=== PATIENT | female | born 1935 | race Caucasian/White ===

== ENCOUNTER 2017-01-02 05:39 | Day surgery (SDC) | payer MEDICARE, OTHER ==
[~2017-01-02] VITALS: Ht 167.6 cm; Wt 69.1 kg
[~2017-01-02 05:39] MED LIST: DIGO125T PO; LEVO112T4 PO; LIOT25 PO; LORazepam 2 MG/ML VIAL IVP PRN; METO25 PO; SODIUM CHLORIDE 0.9% 1,000 ML IV ONE; VANCOMYCIN HCL 1 GM/D5% WATER 200 ML IV ONE
[2017-01-02] MEDS ORDERED: EPHEDrine SULFATE 50 MG/ML VIAL IM ONE (05:40)
[2017-01-02] MEDS ORDERED: METOCLOPRAMIDE HCL 5 MG/ML 2 ML VIAL IVP ONE (05:40)
[2017-01-02] MEDS ORDERED: ALBUTEROL SULFATE HFA 90 MCG/PUFF 8 GM INHALER IH ONE (05:40)
[2017-01-02] MEDS ORDERED: PROPOFOL 1% 20 ML VIAL IVP ONE (05:40)
[2017-01-02] MEDS ORDERED: ONDANSETRON HCL 4 MG/2 ML VIAL IVP ONE (05:40)
[2017-01-02] MEDS ORDERED: LIDOCAINE HCL/PF 2% 5 ML VIAL INJ ONE (05:40)
[2017-01-02] MEDS ORDERED: GLYCOPYRROLATE 0.2 MG/ML VIAL IM ONE (05:40)
[2017-01-02] MEDS ORDERED: SUCCINYLCHOLINE CHLORIDE 20 MG/ML 10 ML VIAL IVP ONE (05:40)
[2017-01-02] MEDS ORDERED: SODIUM CHLORIDE 0.9% 1,000 ML IV ONE ×2 (05:54→10:00)
[2017-01-02] MEDS ORDERED: PROPOFOL 1000 MG/ISO-OSM 200 ML IV ONE (06:24)
[2017-01-02 06:33] LABS: BASOPHILS % (AUTO) 0.4 % (0.0-2.0); EOSINOPHILS % (AUTO) 3.3 % (1.0-6.0); HEMATOCRIT 38.6 % (36-46); HEMOGLOBIN 12.9 g/dL (12.0-16.0); LYMPHOCYTES # (AUTO) 1.5 K/uL (1.0-4.8); LYMPHOCYTES % (AUTO) 14.9 % (22.0-44.0); MEAN CORPUSCULAR HEMOGLOBIN 28.3 pg (26.0-34.0); MEAN CORPUSCULAR HGB CONC 33.3 G/dL (31.0-37.0); MEAN CORPUSCULAR VOLUME 85 fL (80-100); MONOCYTES # (AUTO) 0.9 K/uL (0.1-1.0); MONOCYTES % (AUTO) 9.3 % (2.0-9.0); NEUTROPHILS # (AUTO) 7.2 K/uL (1.8-7.7); NEUTROPHILS % (AUTO) 72.1 % (40.0-70.0); PLATELET COUNT (AUTO) 300 K/uL (150-450); RED BLOOD CELL COUNT(AUTO) 4.55 MIL/uL (4.00-5.20); RED CELL DISTRIBUTION WIDTH 15.6 % (11.5-14.5)
[2017-01-02 06:43] LABS: ALANINE AMINOTRANSFERASE 8 U/L (12-78); ALBUMIN 2.8 g/dL (3.4-5.0); ALKALINE PHOSPHATASE 86 U/L (46-116); ANION GAP 7 mmol/L (8-16); ASPARTATE AMINOTRANSFERASE 13 U/L (15-37); BILIRUBIN,TOTAL 0.5 mg/dL (0.1-1.0); CALCIUM, TOTAL 8.7 mg/dL (8.8-10.5); CARBON DIOXIDE 28 mmol/L (22-29); CHLORIDE 101 mmol/L (98-107); CREATININE 0.49 mg/dL (0.60-1.30); GLOMERULAR FILTR. RATE CALC > 60 mL/min (>60); GLUCOSE,RANDOM 101 mg/dL (70-110); POTASSIUM 4.2 mmol/L (3.5-5.1); SODIUM SERUM 136 mmol/L (136-145); TOTAL PROTEIN, SERUM 6.2 g/dL (6.4-8.2); UREA NITROGEN, BLOOD 7 mg/dL (7-18)
[2017-01-02] MEDS ORDERED: IPRATROPIUM BROMIDE 0.5 MG/2.5 ML NEB SOLUTION NEB ONE (06:45)
[2017-01-02] MEDS ORDERED: ALBUTEROL SULFATE 2.5 MG/0.5 ML NEB SOLUTION NEB ONE ×2 (06:45)
[2017-01-02] MEDS ORDERED: 0.9% SODIUM CHLORIDE 5 ML NEB SOLUTION NEB ONE (06:46)
[2017-01-02] MEDS ORDERED: LIDOCAINE HCL/PF 1% 30 ML VIAL ONE (07:32)
[2017-01-02] MEDS ORDERED: GELATIN SPONGE,ABSORBABLE 12-7 MM TP ONE (07:32)
[2017-01-02] MEDS ORDERED: IOVERSOL 350 MG/ML 100 ML VIAL ONE (07:56)
[2017-01-02] MEDS ORDERED: SODIUM CHLORIDE 0.9% 0 ML ONE (07:56)
[2017-01-02 08:01] LABS: INR 1.1 (0.9-1.1)
[2017-01-02] MEDS ORDERED: SODIUM CHLORIDE 0.9% 1,000 ML IV SCH (09:54)
[2017-01-02] MEDS ORDERED: HYDROmorphone HCL 2 MG TABLET PO ONE (10:00)
[2017-01-02] MEDS ORDERED: OxyCODONE HCL/ACETAMINOPHEN 5-325 MG TABLET PO PRN ×2 (10:00)
[2017-01-02] MEDS ORDERED: HYDROmorphone 2 MG/ML SYRINGE IVP PRN ×2 (10:00→10:30)
[2017-01-02] MEDS ORDERED: FentaNYL CITRATE-PF 100 MCG/2 ML VIAL IVP PRN (10:30)
[2017-01-02] MEDS ORDERED: OXYGEN THERAPY IH SCH (10:30)
[2017-01-02] MEDS ORDERED: HYDROmorphone 2 MG/ML SYRINGE ONE (10:40)
[2017-01-02] MEDS ORDERED: HYDROmorphone HCL 2 MG TABLET ONE (11:10)
[2017-01-02] MEDS ORDERED: KETAMINE HCL 50 MG/ML 10 ML VIAL IVP ONE (12:00)
[2017-01-02] MEDS ORDERED: FentaNYL CITRATE-PF 100 MCG/2 ML VIAL IVP ONE (12:00)
== END 2017-01-02 13:53 | disposition home or self-care (01) ==
LOC: SURGERY 05:39 → EDSTATUS 07:30 → SURGERY 13:53
PROVIDERS: ATTEND Radiology Diagnostic Radiology
DX: R91.8 Other nonspecific abnormal finding of lung field (principal); I48.91 Unspecified atrial fibrillation; I10 Essential (primary) hypertension; Z88.0 Allergy status to penicillin; Z88.8 Allergy status to other drugs, medicaments and biological substances; Z90.710 Acquired absence of both cervix and uterus; Z90.49 Acquired absence of other specified parts of digestive tract; Z98.890 Other specified postprocedural states; Z95.5 Presence of coronary angioplasty implant and graft; Z87.891 Personal history of nicotine dependence; Z86.79 Personal history of other diseases of the circulatory system
CPT/HCPCS: 0340T; 36415; 71010; 80053; 85025; 85610; 93005; J0330; J1170; J2405; J2704 ×2; J2765; J3010; J3370; J3490 ×5; J7030; J3535; J7050